=== PATIENT | female | born 1985 | race Caucasian/White ===

== ENCOUNTER 2018-12-18 13:09 | Outpatient (CLI) | payer MEDICAID, SELFPAY ==
[2018-12-18 16:04] LABS: HCG Quant, Pregnancy < 1 mIU/mL (1-3)
== END 2018-12-18 13:29 ==
PROVIDERS: Visit Provider Advanced Practice Midwife
DX: N91.2 Amenorrhea, unspecified (principal)
CPT/HCPCS: 36415; 84702

== ENCOUNTER 2019-05-14 09:08 | Outpatient (CLI) | payer MEDICAID, SELFPAY ==
[2019-05-14 10:18] LABS: HCG Quant, Pregnancy 62 mIU/mL (1-3)
== END 2019-05-14 09:28 ==
PROVIDERS: Visit Provider Advanced Practice Midwife
DX: Z32.01 Encounter for pregnancy test, result positive (principal)
CPT/HCPCS: 36415; 84702

== ENCOUNTER 2019-05-18 01:29 | Outpatient (CLI) | payer MEDICAID, SELFPAY ==
[2019-05-18 09:22] LABS: HCG Quant, Pregnancy 3 mIU/mL (1-3)
== END 2019-05-18 01:49 ==
PROVIDERS: Visit Provider Advanced Practice Midwife
DX: Z32.01 Encounter for pregnancy test, result positive (principal)
CPT/HCPCS: 36415; 84702

== ENCOUNTER 2019-07-13 10:24 | Outpatient (CLI) | payer MEDICAID, SELFPAY ==
[2019-07-13 11:48] LABS: HCG Quant, Pregnancy 144 mIU/mL (1-3)
== END 2019-07-13 10:44 ==
PROVIDERS: Visit Provider Advanced Practice Midwife
DX: Z32.01 Encounter for pregnancy test, result positive (principal)
CPT/HCPCS: 36415; 84702

== ENCOUNTER 2019-07-16 09:16 | Outpatient (CLI) | payer MEDICAID, SELFPAY ==
[2019-07-16 10:54] LABS: HCG Quant, Pregnancy 633 mIU/mL (1-3)
== END 2019-07-16 09:36 ==
PROVIDERS: Visit Provider Advanced Practice Midwife
DX: O26.851 Spotting complicating pregnancy, first trimester (principal)
CPT/HCPCS: 36415; 84702